=== PATIENT | female | born 1980 | race Caucasian/White ===

== ENCOUNTER 2022-07-25 12:27 | Outpatient (CLI) | payer BC, SELFPAY ==
--- NOTE | ~2022-07-25 | US_ITS ---
EXAMINATION: US venous doppler LE RT DATE: 07/25/2022 13:10 INDICATION: Right lower limb pain and swelling TECHNIQUE: Sawyer scale images without and with compression and Doppler images of the right lower extre mity veins were obtained. COMPARISON: None FINDINGS: The right common femoral vein, profunda femoral vein, femoral vein, popliteal vein, peronea l trunk, posterior tibial veins, and greater saphenous vein are patent. There is superficial thrombop hlebitis in the area of clinical concern. IMPRESSION: 1. No evidence of deep venous thrombosis. 2. Superficial thrombophlebitis in the area of clinical concern. Reviewed, dictated and finalized at location B.
== END 2022-07-25 12:28 | disposition home or self-care (01) ==
PROVIDERS: Visit Provider Obstetrics & Gynecology
DX: R60.9 Edema, unspecified (principal); I80.01 Phlebitis and thrombophlebitis of superficial vessels of right lower extremity
CPT/HCPCS: 93971

== ENCOUNTER 2022-11-06 09:31 | Outpatient (RCR) | payer BC, SELFPAY ==
--- NOTE | ~2022-11-06 | US_ITS ---
EXAMINATION: US OB limited DATE: 11/06/2022 10:31 INDICATION: Amniotic fluid index. Third trimester. TECHNIQUE: Real-time ultrasound of the pelvis was performed. COMPARISON: None. FINDINGS: There is a single fetus in vertex presentation. The placenta is posterior. heart rate is 140 b eats per minute (bpm). The amniotic fluid index is 12.5 cm, which is normal. IMPRESSION: 1. Single living fetus in vertex presentation. 2. Normal amniotic fluid index. Reviewed, dictated and finalized at location A. [employer]STATE ADMINISTRATIVE ASSISTANT
[2022-11-06 10:42] VITALS: BP 102/67
== END 2022-11-16 13:34 | disposition home or self-care (01) ==
LOC: ANHOBOP 09:31
PROVIDERS: Visit Provider Obstetrics & Gynecology
DX: O09.513 Supervision of elderly primigravida, third trimester (principal); Z3A.38 38 weeks gestation of pregnancy
CPT/HCPCS: 59025; 76815

== ENCOUNTER 2022-11-13 05:49 | Inpatient (IN) | payer BC, SELFPAY ==
[2022-11-13] VITALS (88 sets, daily range): BP systolic 79–159; BP diastolic 36–138; PULSE 59–272; RESP 18; TEMP 36.6–37.3; O2SAT 89–100; BMI 28.5
[2022-11-13 06:45] LABS: Basophils Absolute Auto 0.1 K/mm3 (0.0-0.1); Basophils Percent Auto 0.5 % (0.2-1.2); Eosinophils Absolute Auto 0.2 K/mm3 (0-0.3); Hematocrit 34.4 % (37.0-47.0); Hemoglobin 11.4 g/dL (12.0-15.0); Immature Granulocyte Absolute 0.12 K/mm3 (0.00-0.031); Lymphocytes Absolute Auto 2.09 K/mm3 (0.9-3.2); Lymphocytes Percent Auto 17.8 % (18.3-44.2); Mean Corpuscular HGB Conc 33.1 g/dl (32-36); Mean Corpuscular Hemoglobin 27.4 pg (26-34); Mean Corpuscular Volume 82.7 fl (80-100); Mean Platelet Volume 9.6 fl (7.4-10.4); Monocytes Absolute Auto 0.7 K/mm3 (0.1-0.6); Monocytes Percent Auto 6.3 % (2.6-8.5); Neutrophils Absolute Auto 8.5 K/mm3 (1.3-6.7); Neutrophils Percent Auto 72.4 % (45.5-73.1); Platelet Count Result 263 k/mm3 (150-375); Red Blood Count 4.16 M/mm3 (4.2-5.4); Red Cell Distribution Width 13.3 % (11.5-14.5); White Blood Count 11.7 K/mm3 (4.5-10.0)
[2022-11-13] MEDS: LACTATED RINGERS 1,000 ML 125 ML IV CONT ×2 (06:49→10:48)
[2022-11-13] MEDS: OXYTOCIN 30 UNITS/NS 500 ML 30 UNITS/500 ML BAG IV CONT (06:50)
--- NOTE | 2022-11-13 06:51 | LDADM ---
This patient, Phylicia Pollack, was admitted to Labor/Delivery/Recovery 103 on 11/13/22 at 05:49. Plans for labor, pain management and were discussed with patient. Patient/family oriented to hospital policies and general routines including ID bracelet, bed and alarms, visiting hours, pain management, procedures, bathroom and other care routines, personal items, smoking policy, room service/diet and guest tray routines, security routines, and visiting hours. Patient/Family are encouraged to report perceived risks to care and to ask questions if they do not understand what they are told or what they should do. See OBIX for further documentation.
--- NOTE | 2022-11-13 09:19 | PM.IMHP ---
H&P: HPI History of Present Illness Date/Time: 11/13/22 09:19 Chief Complaint: Patient admitted for MIL. She has been informed of risk benefits of MIL with favorable cervix. She desires MIL. She is 39 weeks by LMP 02/10/22 with an EDC 11/17/22. C/w 14 week ultrasound. PNC significant for AMA. Rubella NI Declined NIPT. Normal ultrasound findings. Labs with false pos RPR, TPA neg. GBS neg. Review of Systems Review of Systems: All systems reviewed & are unremarkable except as noted in HPI and below Constitutional: Constitutional: Reports no additional constitutional complaints and Denies headache(s) Eyes: Eyes: Denies spots in vision ENT: Reports system reviewed and no additional complaints, except as documented and Denies headache(s) Cardiovascular: Cardiovascular: Denies chest pain and Denies dyspnea Respiratory: Respiratory: Denies dyspnea Gastrointestinal: Gastrointestinal: Reports no additional gastrointestinal complaints Genitourinary: Genitourinary: Reports amenorrhea Musculoskeletal: Musculoskeletal: Reports no additional musculoskeletal complaints Integumentary/Breasts: Skin/Breast: Denies breast mass and Denies rash Neurologic: Denies headache(s) Psychiatric: Psychiatric: Reports no additional psychiatric complaints PMFSH Past Medical History Medical History Retropharyngeal abscess Surgical History Surgical History History of cholecystectomy Family History Family History Other Carcinoma of colon Lung cancer Social History Social History Smoking status: Never smoker Alcohol intake: never Substance use: never Lack of Transportation: No Lack of Food: Never True Current Housing: I Have Housing Concerned About Future Housing: No Difficulty Paying Gas/Electric Bills: No Difficulty Paying for Meds: No Currently Unemployed: No Education: High School Diploma/GED Difficulty w/ Childcare or Family Care: No Spiritual care concerns: No Meds Home Medications and Allergies Home Medications Medication Instructions Recorded Confirmed Type prenat.vits,schuyler,[id number] 1 tablet PO DAILY 05/15/22 11/13/22 History aspirin 81 mg tablet 81 mg PO DAILY 10/22/22 11/13/22 History Allergies Allergy/AdvReac Type Severity Reaction Status Date / Time SHELLFISH Allergy Mild Unknown Uncoded 11/06/22 08:41 Vital Signs Vital Signs - 24 hr 11/13/22 06:45 11/13/22 07:00 11/13/22 07:15 Temperature Pulse Rate 87 76 78 Blood Pressure 121/74 123/75 108/77 Oxygen Delivery 11/13/22 07:30 11/13/22 07:45 11/13/22 08:00 Temperature 98.2 F Pulse Rate 80 79 69 Blood Pressure 105/71 106/76 101/71 Oxygen Delivery 11/13/22 08:15 11/13/22 08:30 11/13/22 08:45 Temperature Pulse Rate 73 67 70 Blood Pressure 97/66 L 106/66 111/76 Oxygen Delivery 11/13/22 09:00 11/13/22 09:15 11/13/22 06:51 Temperature Pulse Rate 67 74 Blood Pressure 108/72 116/81 Oxygen Delivery Room Air Exam Const: General: no acute distress Eyes: General: appearance normal, both eyes and all related structures Resp: Effort & Inspection: normal respiratory effort Cardio: Rate: regular rate GI: Inspection: normal to inspection Other: Gravid no fundal tenderness no right upper quadrant pain Skin: General skin exam: no rashes or lesions noted Neuro: Cognition (Neuro): normal cognition Extrem: General: normal to inspection Psych: Mental Status: mental status grossly normal H&P: Results Labs Labs: Short CBC 11/13/22 Range/Units 06:32 WBC 11.7 H (4.5-10.0) K/mm3 Hgb 11.4 L (12.0-15.0) g/dL Hct 34.4 L (37.0-47.0) % Plt Count 263 (150-375) k/mm3 Assessment and Plan Assessment and plan (1) Elective
--- NOTE | 2022-11-13 09:28 | PM.OBPNLAB ---
Pain Control Date/time seen: 11/13/22 09:28 Comments: FHT 135, Cat 1, cervix 01/21/60/-2, AROM, clear. Continue Pitocin.
--- NOTE | 2022-11-13 10:52 | WPDANESEPPF ---
Anes - Initial Pre Proc Eval Date/Time: 11/13/22 10:52 Surgeon: Mikey Alonso MD Pre Op Diagnosis: IOL Patient Data Age: 42 Gender: F Height: 1.73 m Weight: 85 kg Last Vital Signs Temp 36.9 C 11/13/22 09:30 Pulse 79 11/13/22 10:50 BP 114/75 11/13/22 10:50 Pulse Ox 100 11/13/22 10:50 O2 Del Method Room Air 11/13/22 06:51 Allergies Allergy/AdvReac Type Severity Reaction Status Date / Time SHELLFISH Allergy Mild Unknown Uncoded 11/06/22 08:41 Home Medications Medication Instructions Recorded Confirmed Type prenat.vits,schuyler,[id number]-ahpxq 1 tablet PO DAILY 05/15/22 11/13/22 History aspirin 81 mg tablet 81 mg PO DAILY 10/22/22 11/13/22 History Laboratory Tests 11/13/22 11/13/22 11/13/22 06:32 06:32 06:32 WBC 11.7 K/mm3 H K/mm3 (4.5-10.0) RBC 4.16 M/mm3 L M/mm3 (4.2-5.4) Hgb 11.4 g/dL L g/dL (12.0-15.0) Hct 34.4 % L % (37.0-47.0) MCV 82.7 fl fl (80-100) MCH 27.4 pg pg (26-34) MCHC 33.1 g/dl g/dl (32-36) RDW 13.3 % % (11.5-14.5) Plt Count 263 k/mm3 k/mm3 (150-375) MPV 9.6 fl fl (7.4-10.4) Immature Gran % (Auto) 1.0 % H % (0-0.5) Neut % (Auto) 72.4 % % (45.5-73.1) Lymph % (Auto) 17.8 % L % (18.3-44.2) [place] % (Auto) 6.3 % % (2.6-8.5) Eos % (Auto) 2.0 % % (0-4.4) Baso % (Auto) 0.5 % % (0.2-1.2) Lymph # (Auto) 2.09 K/mm3 K/mm3 (0.9-3.2) [place] # (Auto) 0.7 K/mm3 H K/mm3 (0.1-0.6) Eos # (Auto) 0.2 K/mm3 K/mm3 (0-0.3) Baso # (Auto) 0.1 K/mm3 K/mm3 (0.0-0.1) Abs Immat Gran (auto) 0.12 K/mm3 H K/mm3 (0.00-0.031) Absolute Neuts (auto) 8.5 K/mm3 H K/mm3 (1.3-6.7) Absolute Nucleated RBC 0.0 K/mm3 K/mm3 (0.0-0.012) Nucleated RBC % 0.0 % % (0.0-0.2) RPR Pending Blood Type O Positive Antibody Screen Negative Patient hx anesthesia problems: none Family hx anesthesia problems: none Results Review: All pre-operative results and documents have been reviewed as part of the pre-operative evaluation. [facility] Past Medical History Medical History Retropharyngeal abscess Surgical History Surgical History History of cholecystectomy Family History Family History Other Carcinoma of colon Lung cancer Social History Social History Smoking status: Never smoker Alcohol intake: never Substance use: never Lack of Transportation: No Lack of Food: Never True Current Housing: I Have Housing Concerned About Future Housing: No Difficulty Paying Gas/Electric Bills: No Difficulty Paying for Meds: No Currently Unemployed: No Education: High School Diploma/GED Difficulty w/ Childcare or Family Care: No Spiritual care concerns: No Anes - Eval Final PreProcedure Day of Procedure 11/13/22 10:52 Patient weight: overweight Heart: regular rate and rhythm Lungs: clear to auscultation Neurological: alert and oriented ASA classification: II Emergent: no Anesthetic plan: proceed Anesthesia type and monitoring: regional epidural and standard monitoring Results Review: All pre-operative results and documents have been reviewed as part of the pre-operative evaluation. Informed Consent: The patient's anesthetic plan and its attendant risks and benefits were discussed with the patient/family/POA. Questions were solicited and answers provided to the satisfaction of the patient/family/POA.
[2022-11-13 11:28] LABS: Rapid Plasma Reagin Non-Reactive (NonReactive)
--- NOTE | 2022-11-13 16:14 | PM.OBPRVD ---
OB - Delivery Note Procedure Delivery date: 11/13/22 Procedure: Spontaneous vaginal delivery Events: Elective Induction of Labor Induction method: Per Pitocin Protocol Delivery augmentation: Rupture of Membranes (0916) Delivery monitor: External FHT Route of delivery: Episiotomy description: Midline Delivery repair: vicryl (3.0 ) Specimen: No Quantitative Blood Loss (ml): 150 Anesthesia type: Epidural Disposition: Floor Complications: Patient admitted for elective medical induction of labor at 39. IV Pitocin was started. She had irregular contractions. She had subsequent AROM of clear fluid. She continued to progress into active labor. She dilated to complete. She delivered a female infant over intact perineum, a midline episiotomy was subsequently performed with delivery of the anterior shoulder and modified McRobert's position. The anterior shoulder and the rest of infant was delivered. was placed on maternal abdomen, vigorously crying. Delayed cord clamping for 45 sec until the cord was apulsatile. Pitocin started. The placenta delivered spontaneously and intact. The midline episiotomy was repaired with 3.0 vicyl. Patient tolerated procedure well. [place] Baby Date of : 11/13/22 Time of : 15:59 Weeks of gestation at delivery: 39 Infant gender: Male Weight (pounds): 8 Weight (ounces): 15 presentation: vertex position: Right Occiput Anterior Placenta delivery description: Spontaneous Cord Vessel Description: 3 Vessels score one minute: 8 score five minutes: 9 AMG Delivery Billing Delivery Delivery: Delivery Charge
[2022-11-13] MEDS: OXYTOCIN 30 UNITS/NS 500 ML 30 UNITS/500 ML BAG 125 UNITS IV CONT (16:30)
[2022-11-13] MEDS: BENZOCAINE 20% AER SPR (*SP) 56 GM CAN 1 SPRAY TOPICAL (18:17)
[2022-11-13] MEDS: WITCH HAZEL 40 PADS 1 PAD TOPICAL (18:17)
--- NOTE | 2022-11-13 19:18 | PC.NURSE ---
Patient transferred to post room #286 per wheelchair from labor and delivery. Support person present. Oriented to unit, room, information board, rooming in, admission packet and security measures. Patient verbalizes understanding.
[2022-11-13] MEDS: IBUPROFEN 600 MG TABLET PO (19:59)
[2022-11-14] VITALS: BP 131/86; PULSE 59; RESP 18; TEMP 36.3
[2022-11-14] MEDS: ACETAMINOPHEN 325 MG TABLET 650 MG PO ×2 (00:04→07:41)
[2022-11-14 04:20] VITALS: BP 115/68; PULSE 56; RESP 18; TEMP 36.8
[2022-11-14] MEDS: IBUPROFEN 600 MG TABLET PO ×2 (04:30→11:57)
[2022-11-14 05:15] LABS: Hematocrit 31.5 % (37.0-47.0); Hemoglobin 10.2 g/dL (12.0-15.0)
[2022-11-14] MEDS: DOCUSATE SODIUM 100 MG CAPSULE PO (07:41)
[2022-11-14 07:50] VITALS: BP 121/76; PULSE 75; RESP 18; TEMP 36.8; O2SAT 100
--- NOTE | 2022-11-14 10:00 | WPDANLDPN2 ---
Anes-Prog Note L&D Date/Time: 11/14/22 10:00 Comfortable throughout: labor Neuraxial method: epidural Epidural/Spinal procedure site: clean & non-tender Neuro status: Neuro function grossly intact. Cardiovascular status: normal Respiratory status: normal Airway patency: baseline Mental status: baseline Post-Op hydration status: normal Vital Signs: Last Vital Signs Temp 98.3 F 11/14/22 07:50 Pulse 75 11/14/22 07:50 Resp 18 11/14/22 07:50 BP 121/76 11/14/22 07:50 Pulse Ox 100 11/14/22 07:50 O2 Del Method Room Air 11/13/22 06:51 Pain score (VAS): 0-1 I/O: Intake & Output 11/13/22 11/14/22 11/14/22 23:59 07:59 15:59 Intake Total 2000 Output Total 150 Balance 1850 Patient feedback: Patient satisfied with anesthetic care.
--- NOTE | 2022-11-14 10:04 | PM.OBPNVD ---
OB - PN: Subj Subjective Date/time seen: 11/14/22 10:04 Patient comments: pain well controlled, tolerating diet and other (Decreasing lochia.) baby status: doing well and nursing well OB - PN: Obj Data Labs 11/14/22 04:28 Labs: Laboratory Results - last 24 hr 11/13/22 11/14/22 06:32 04:28 Hgb 10.2 L Hct 31.5 L RPR Non-reactive OB - PN A/P Plan day: 1 Plan: routine care Comments: Patient doing well. She request discharge today. Discharge precautions discussed. Time Spent With Patient Time: Total time spent is greater than 50% in coordination of care (as documented) at patient's floor/unit and/or counseling patient: Exam Psych: Affect: normal affect Other: Abd: fundus firm below umbilicus, nontender Perineum: healing Ext: nontender
--- NOTE | 2022-11-14 10:07 | PM.OBDSVD ---
DS: Admitting Diagnosis Discharge Date 11/14/2022 Admitting Diagnosis Medical induction of labor DS: Discharge Diagnosis Discharge Diagnosis Plan Intrauterine delivered. OB - DS: Summary Hospital Course Hospital Course: She was admitted for medical induction of labor. She had pitocin induction. Subsequent AROM. She had an uncomplicated vaginal delivery. She did well . She had adequate pain control. She was ambulating well. No leg pain. Lochia decreasing. She did well . She requested discharge home on day 1. OB Procedures : Ultrasound OB Procedures Intrapartum: Spontaneous Vag Delivery OB Procedures: : None Peripartum Data Infant Delivery Method: Natural Vaginal Episiotomy description: Midline complications: none Status at Discharge Functional status at discharge: independent ambulation Time Spent with Patient Time attestation: Total time spent providing and/or coordinating discharge services: Exam Const: General: cooperative Orientation/consciousness: oriented to person, oriented to place and oriented to time HENMT: Face/Nose/Sinus: Normal external nose present Eyes: General: appearance normal, both eyes and all related structures Resp: Effort & Inspection: normal respiratory effort GI: Inspection: normal to inspection Skin: General skin exam: normal color Neuro: General: oriented to person, oriented to place and oriented to time Extrem: General: normal to inspection and no calf tenderness Psych: Appearance: grossly normal Mental Status: mental status grossly normal DS: Data Data Completed and Pending Labs on day of discharge: Labs from last 24 hours 11/14/22 11/13/22 04:28 06:32 Hgb 10.2 L Hct 31.5 L RPR Non-reactive Discharge Plan Discharge Attending physician on discharge: Mikey Alonso Consulting providers: Brigido Tobar Discharging Clinician: Mikey Alonso Anticipated Discharge Date/Time: 11/14/22 16:00 Patient Disposition: Home, Self-Care Activity: may shower, no straining and pelvic rest Diet: regular Wound Care Instructions: other - see discharge instructions Discharge Instructions: Pelvic rest for 4-6 weeks. May take over the counter Ibuprofen or Tylenol for pain. Call if saturating more than a pad an hour, leg redness, pain and swelling, temperature>100.4. No strenuous activity. Patient Instructions: Antibiotic Form Stand Alone Forms: General Discharge Information Follow-up/Referrals: Mikey Alonso MD [Physician] - 4 Weeks (Call for appointment) Discharge Medications: Continued prenat.vits,schuyler,[id number] Tablet 1 tablet PO DAILY Adult Low Dose Aspirin 81 mg Tablet 81 mg PO DAILY Date of admission: 11/13/22 05:49 Primary Care Provider: UNKNOWN,DOCTOR Admitting Provider: Mikey Alonso Attending physician on admission: Mikey Alonso Condition: Stable
[2022-11-14 11:30] VITALS: BP 125/81; PULSE 70; RESP 18; TEMP 36.7; O2SAT 100
[2022-11-14] MEDS: MEASLES,MUMPS,RUBELLA VACCINE 0.5 ML VIAL SUB-Q (17:05)
[2022-11-15 11:21] VITALS: BP 123/75; PULSE 78; RESP 20; TEMP 36.8; O2SAT 98
== END 2022-11-14 17:50 | disposition home or self-care (01) | DRG 807 ==
LOC: ANHLDR 05:58 → ANHOB2 19:22
PROVIDERS: Admitting Provider Obstetrics & Gynecology; Visit Provider Obstetrics & Gynecology
DX: O80 Encounter for full-term uncomplicated delivery (principal); Z37.0 Single live birth; Z90.49 Acquired absence of other specified parts of digestive tract; Z79.82 Long term (current) use of aspirin; Z3A.39 39 weeks gestation of pregnancy
CPT/HCPCS: 36415; 85014; 85018; 85025; 86592; 86850; 86900; 86901; 90710; A9270; J2590; J2795; J7120